=== PATIENT | female | born 1990 | race African-American/Black ===

== ENCOUNTER 2022-06-28 14:04 | Emergency (ER) | payer OTHER ==
[2022-06-28 14:13] VITALS: BP 124/77; PULSE 62; RESP 18; TEMP 98; BMI 37.0
[2022-06-28] MEDS ORDERED: ACETAMINOPHEN 500 MG TABLET (FP) PO ONE (16:23)
[2022-06-28] MEDS ORDERED: ACETAMINOPHEN 500 MG TABLET (FP) ONE (16:25)
== END 2022-06-28 18:46 | disposition home or self-care (01) ==
LOC: JERFT 14:04
DX: R51.9 Headache, unspecified (principal); V49.40XA Driver injured in collision with unspecified motor vehicles in traffic accident, initial encounter
CPT/HCPCS: 70450-TC; 70486-TC; 72125-TC; 99284-25

== ENCOUNTER 2024-01-25 08:55 | Inpatient (IN) | payer OTHER ==
[2024-01-25] MEDS: ELECTROLYTE-148 SOLN 1,000 ML IV SCH (10:35)
[2024-01-25] MEDS ORDERED: OXYTOCIN 30 UNITS in 0.9% NS 30 UNIT/500 ML INFUS.BAG IVPB ONE ×2 (10:43→19:33)
[2024-01-25] MEDS: OXYTOCIN 30 UNITS in 0.9% NS 30 UNIT/500 ML INFUS.BAG IVPB SCH (11:00)
[2024-01-25 11:11] LABS: BASO % 0.3 % (0-2.0); EOS % 1.3 % (0-4.5); HEMATOCRIT 36.9 % (32.4-45.2); HEMOGLOBIN 12.5 GM/dL (10.7-15.3); LYMPH % 33.9 % (8-40); MCH 32.3 pg (25.7-33.7); MEAN PLT VOLUME 7.9 fl (7.5-11.1); MONO % 9.3 % (3.8-10.2); NEUT % 55.2 % (42.8-82.8); PLATELET COUNT 188 10^3/uL (134-434); RBC 3.88 M/mm3 (3.60-5.2); WHITE BLOOD COUNT 7.5 K/mm3 (4.0-10.0)
[2024-01-25 11:20] LABS: INR 0.93 (0.83-1.09); PROTHROMBIN TIME (PATIENT) 10.5 SEC (9.7-13.0)
[2024-01-25 11:23] LABS: ACTIVATED PTT 29.1 SECONDS (25.2-36.5)
[2024-01-25 11:34] LABS: POTASSIUM 4.1 mmol/L (3.5-5.1)
[2024-01-25 11:35] LABS: CALCIUM 8.3 mg/dL (8.5-10.1)
[2024-01-25 11:36] LABS: BLOOD UREA NITROGEN 10.6 mg/dL (7-18)
[2024-01-25 11:39] LABS: CREATININE 0.5 mg/dL (0.55-1.3)
[2024-01-25 12:04] VITALS: BMI 41.4
[2024-01-25] MEDS ORDERED: AMPICILLIN SODIUM 2 GM VIAL ONE (12:13)
[2024-01-25] MEDS: AMPICILLIN - 2 GM in SODIUM CHLORIDE 100 ML IVPB ONE (12:15)
[2024-01-25] MEDS ORDERED: FENTANYL/BUPIVACAINE/NS/PF - PCEA - 50 ML DISP.SYRIN EP ONE ×2 (14:18→19:03)
[2024-01-25] MEDS: FENTANYL/BUPIVACAINE/NS/PF - PCEA - 50 ML DISP.SYRIN EP SCH (14:55)
[2024-01-25] MEDS ORDERED: AMPICILLIN SODIUM 1 GM VIAL ONE (15:47)
[2024-01-25] MEDS ORDERED: NALOXONE HCL 0.4 MG/ML VIAL IVPUSH PRN (15:48)
[2024-01-25] MEDS: AMPICILLIN - 1 GM in SODIUM CHLORIDE 100 ML IVPB SCH (15:50)
[2024-01-25] MEDS: CITRIC ACID/SODIUM CITRATE 30 ML UNIT-DOSE CUP PO ONE (19:20)
[2024-01-25] MEDS ORDERED: FENTANYL CITRATE/PF 50 MCG/ML VIAL ONE (19:39)
[2024-01-25] MEDS ORDERED: ceFAZolin SODIUM 1 GM VIAL ONE (19:49)
[2024-01-25 20:33] LABS: CORD HCO3 23.5 mmHg (20-29); CORD PCO2 62.3 mmHg (30-78); CORD pH 7.195 (7.14-7.44)
[2024-01-25 20:36] LABS: CORD BASE EXCESS -4.1 mmol/L (0-2); CORD PCO2 55.7 mmHg (30-78); CORD pH 7.252 (7.14-7.44)
[2024-01-25] MEDS ORDERED: METHYLERGONOVINE MALEATE 0.2 MG/1 ML AMP IM PRN ×2 (20:52→21:04)
[2024-01-25] MEDS ORDERED: SIMETHICONE 80 MG TAB.CHEW (FP) PO PRN (20:52)
[2024-01-25] MEDS ORDERED: IBUPROFEN 600 MG TABLET (FP) PO PRN (20:52)
[2024-01-25] MEDS ORDERED: ACETAMINOPHEN 325 MG TABLET (FP) PO PRN ×2 (20:52→21:04)
[2024-01-25] MEDS ORDERED: ONDANSETRON 4 MG/2 ML VIAL IVPUSH PRN (21:04)
[2024-01-25] MEDS ORDERED: ACETAMINOPHEN INJECTION 100 ML IVPB ONE (23:13)
[2024-01-25] MEDS: ACETAMINOPHEN 1000 MG/100 ML BAG IVPB ONE (23:15)
[2024-01-26] MEDS: OXYTOCIN 20 UNITS in 0.9% NS 20 UNIT/1,000 ML INFUS.BAG IV SCH ×2 (00:09→00:34)
[2024-01-26] MEDS: KETOROLAC TROMETHAMINE 30 MG/1 ML VIAL IVPUSH PRN (00:10)
[2024-01-26] MEDS: CEFAZOLIN SODIUM 2 GM in DEXTROSE 5%-WATER 100 ML IVPB SCH (01:04)
[2024-01-26] MEDS: IBUPROFEN 600 MG TABLET (FP) PO PRN (06:07)
[2024-01-26 08:32] LABS: BASO % 0.2 % (0-2.0); EOS % 0.3 % (0-4.5); HEMATOCRIT 33.5 % (32.4-45.2); HEMOGLOBIN 11.3 GM/dL (10.7-15.3); LYMPH % 13.3 % (8-40); MCH 32.5 pg (25.7-33.7); MCHC 33.9 g/dl (32.0-36.0); MEAN CELL VOLUME 95.9 fl (80-96); MEAN PLT VOLUME 7.5 fl (7.5-11.1); MONO % 6.2 % (3.8-10.2); PLATELET COUNT 155 10^3/uL (134-434); RBC 3.49 M/mm3 (3.60-5.2); RDW 12.8 % (11.6-15.6); WHITE BLOOD COUNT 12.3 K/mm3 (4.0-10.0)
[2024-01-26] MEDS ORDERED: oxyCODONE HCL 5 MG TABLET PO PRN ×3 (08:52→09:05)
[2024-01-26] MEDS: ENOXAPARIN NA (PORCINE) 40 MG/0.4 ML DISP.SYRIN SQ SCH (09:10)
[2024-01-26 10:24] VITALS: RESP 18
[2024-01-26 11:31] LABS: POC NITRAZINE NEG
[2024-01-26] MEDS ORDERED: BISACODYL 10 MG SUPP.RECT RC PRN ×2 (20:52→21:05)
[2024-01-26] MEDS: SIMETHICONE 80 MG TAB.CHEW (FP) PO PRN (21:19)
[2024-01-27] MEDS: oxyCODONE HCL 5 MG TABLET PO PRN (19:34)
[2024-01-28 08:35] LABS: BASO % 0.4 % (0-2.0); EOS % 1.9 % (0-4.5); HEMATOCRIT 29.3 % (32.4-45.2); LYMPH % 28.3 % (8-40); MCH 32.7 pg (25.7-33.7); MCHC 34.2 g/dl (32.0-36.0); MEAN CELL VOLUME 95.5 fl (80-96); MEAN PLT VOLUME 7.8 fl (7.5-11.1); MONO % 8.3 % (3.8-10.2); NEUT % 61.1 % (42.8-82.8); PLATELET COUNT 154 10^3/uL (134-434); RBC 3.07 M/mm3 (3.60-5.2); RDW 12.8 % (11.6-15.6); WHITE BLOOD COUNT 8.3 K/mm3 (4.0-10.0)
[2024-01-28 11:22] VITALS: BP 125/65; PULSE 89; TEMP 98.2
== END 2024-01-28 12:55 | disposition home or self-care (01) | DRG 540 ==
LOC: JDEL 08:55 → JLDR 10:00 → J3W 23:54
PROVIDERS: ADMIT Obstetrics & Gynecology; ATTEND Obstetrics & Gynecology
PROC: 10D00Z1 Extraction of Products of Conception, Low, Open Approach (ICD-10-PCS; principal; 2024-01-25)
DX: O76 Abnormality in fetal heart rate and rhythm complicating labor and delivery (principal); O48.0 Post-term pregnancy; Z3A.40 40 weeks gestation of pregnancy; O77.0 Labor and delivery complicated by meconium in amniotic fluid; O62.1 Secondary uterine inertia; O34.13 Maternal care for benign tumor of corpus uteri, third trimester; D25.9 Leiomyoma of uterus, unspecified; Z37.0 Single live birth
CPT/HCPCS: 36415; 36600; 59025; 80048; 82803; 83986-QW; 85025; 85610; 85730; 86780; 86850; 86900; 86901; 88307-TC; J0131